=== PATIENT | female | born 1990 | race Caucasian/White ===

== ENCOUNTER 2017-05-04 23:00 | Emergency (ER) | payer BC, MEDICAID ==
[~2017-05-04] VITALS: Ht 170.2 cm; Wt 53.0 kg
[2017-05-04 23:02] VITALS: BP 119/80; PULSE 85; RESP 16; TEMP 97.6; O2SAT 100
[2017-05-04] MEDS ORDERED: PREN29TA PO (23:28)
[2017-05-04 23:59] VITALS: BP 118/73; PULSE 88; RESP 16; O2SAT 99
--- NOTE | 2017-05-05 01:13 | PD ---
HPI Chief Complaint: Related Problem Time Seen by Provider: 01:09 Travel History International Travel<30 days: No Contact w/Intl Traveler<30days: No Traveled to known affect area: No History of Present Illness HPI 26-year-old female Ab1 presents to the emergency department last muscle. January 2017 estimating herself to be approximately 13 weeks . Patient was seen by her PRESSURE DISPATCHER on Friday ultrasound was performed and reportedly she was almost 13 weeks at that time. Patient states that there were no other concerns or complaints at time of ultrasound. Patient reports that at 8 AM she started having cramping on Friday and 8 PM started having vaginal bleeding on and the evening. Patient states the vaginal bleeding has decreased. Patient denies passing any clots or tissue. Patient denies dysuria frequency urgency flank pain near-syncope or syncope. PFSH Past Medical History Narrative Medical Ab1; no tobacco use: Nursing notes reviewed Medical History: Denies Significant Hx Diminished Hearing: No Tetanus Vaccination: < 5 Years Influenza Vaccination: No ?: Past Surgical History Surgical History: No Previous Surgery Social History Alcohol Use: No Tobacco Use: No Substance Use: No Allergies-Medications (Allergen,Severity, Reaction): Coded Allergies: penicillin G (Verified Allergy, Intermediate, 05/04/17) HIVES Reported Meds & Prescriptions Reported Meds & Active Scripts Active Reported Plus Iron 29-1 mg ( Vit-Iron Carbonyl) 29 Mg Iron-1 Mg Tab 1 Tab PO DAILY Review of Systems Except as stated in HPI: all other systems reviewed are Neg Physical Exam Narrative Well-developed well-nourished female in no acute distress no respiratory distress GENERAL: SKIN: Warm and dry. HEAD: Normocephalic. EYES: No scleral icterus. No injection or drainage. NECK: Supple, trachea midline. No JVD or lymphadenopathy. CARDIOVASCULAR: Regular rate and rhythm without murmurs, gallops, or rubs. RESPIRATORY: Breath sounds equal bilaterally. No accessory muscle use. GASTROINTESTINAL: Abdomen soft, non-tender, nondistended. Pelvic exam: MUSCULOSKELETAL: No cyanosis, or edema. BACK: Nontender without obvious deformity. No CVA tenderness. Data Data Last Documented VS Vital Signs Date Time Temp Pulse Resp B/P (MAP) Pulse Ox O2 Delivery O2 Flow Rate FiO2 05/04/17 23:59 88 16 118/73 (88) 99 Room Air 05/04/17 23:02 97.6 Orders Orders Beta Hcg (Quant/Titer) (05/05/17 01:10) Complete Blood Count With Diff (05/05/17 01:10) Complete Rh (05/05/17 01:10) Urinalysis - C+S If Indicated (05/05/17 01:10) Labs Laboratory Tests Test 05/05/17 01:25 05/05/17 02:30 White Blood Count 10.1 TH/MM3 Red Blood Count 4.33 MIL/MM3 Hemoglobin 13.5 GM/DL Hematocrit 39.6 % Mean Corpuscular Volume 91.6 FL Mean Corpuscular Hemoglobin 31.2 PG Mean Corpuscular Hemoglobin Concent 34.1 % Red Cell Distribution Width 13.0 % Platelet Count 172 TH/MM3 Mean Platelet Volume 7.9 FL Neutrophils (%) (Auto) 66.6 % Lymphocytes (%) (Auto) 24.5 % Monocytes (%) (Auto) 6.4 % Eosinophils (%) (Auto) 1.9 % Basophils (%) (Auto) 0.6 % Neutrophils # (Auto) 6.7 TH/MM3 Lymphocytes # (Auto) 2.5 TH/MM3 Monocytes # (Auto) 0.7 TH/MM3 Eosinophils # (Auto) 0.2 TH/MM3 Basophils # (Auto) 0.1 TH/MM3 CBC Comment DIFF FINAL Differential Comment Human Chorionic Gonadotropin, Quant 70305 MIU/ML Urine Color YELLOW Urine Turbidity HAZY Urine pH 6.0 Urine Specific [place] 1.028 Urine Protein TRACE mg/dL Urine Glucose (UA) NEG mg/dL Urine Ketones 40 mg/dL Urine Occult Blood NEG Urine Nitrite NEG Urine Bilirubin NEG Urine Urobilinogen LESS THAN 2.0 MG/DL Urine Leukocyte Esterase NEG Urine RBC LESS THAN 1 /hpf Urine WBC 2 /hpf Urine Squamous Epithelial Cells 3 /hpf Urine Hyaline Casts 1 /lpf Urine Mucus MANY /lpf Microscopic Urinalysis Comment CULT NOT INDICATED MDM Medical Decision Making Medical Screen Exam Complete: Yes Emergency Medical Condition: Yes Medical Record Reviewed: Yes Interpretation(s) CBC & BMP Diagram 05/05/17 01:25 Vital Signs Date Time Temp Pulse Resp B/P (MAP) Pulse Ox O2 Delivery O2 Flow Rate FiO2 05/04/17 23:59 88 16 118/73 (88) 99 Room Air 05/04/17 23:56 90 14 05/04/17 23:02 97.6 85 16 119/80 (93) 100 Room Air Urinalysis: No bacteria no culture indicated HC,953 (O+) Differential Diagnosis , threatened spontaneous AB, UTI Narrative Course Well-developed well-nourished female in no acute distress no respiratory distress pelvic exam no blood in the vaginal vault no tissue no clots cervical os is closed no cervical motion tenderness; after informed verbal consent bedside ultrasound performed by me using curvilinear probe and longitudinal and transverse views reveals intrauterine with heart rate of 146. Lab values found to be in normal range Hemoglobin stable; oh positive blood type Diagnosis Primary Impression: Qualified Codes: Z3A.13 - 13 weeks gestation of Additional Impression: Threatened spontaneous Referrals: Occupational Safety Specialist 1 day Patient Instructions: General Instructions Departure Forms: Tests/Procedures, Work Release Special Instructions: no work x 2 days Additional Instructions: Increase fluid hydration No work 2 days Pelvic rest 2 days Increase fluid hydration Tylenol as needed for discomfort or pain or for fever 100.4F or greater Return immediately to the nurse emergency department for bleeding greater than 1 pad per hour increased pain or any concerns Follow-up with PRESSURE DISPATCHER call office in a.m. to schedule appointment Disposition: DISCHARGE HOME Condition: Stable Chantel Weller MD May 05, 2017 01:13
[2017-05-05 01:40] LABS: AUTOMATED NEUTROPHIL # 6.7 TH/MM3 (1.8-7.7); BASOPHIL # 0.1 TH/MM3 (0-0.2); BASOPHIL % 0.6 % (0.0-2.0); EOSINOPHIL # 0.2 TH/MM3 (0-0.4); EOSINOPHIL % 1.9 % (0.0-4.0); HEMATOCRIT 39.6 % (35.0-46.0); HEMO FLAGS DIFF FINAL; LYMPH % 24.5 % (9.0-44.0); LYMPHOCYTE # 2.5 TH/MM3 (1.0-4.8); MEAN CELL VOLUME 91.6 FL (80.0-100.0); MEAN CORPUSCULAR HEMOGLOBIN 31.2 PG (27.0-34.0); MEAN CORPUSCULAR HGB CONC 34.1 % (32.0-36.0); MONO % 6.4 % (0.0-8.0); NEUT % 66.6 % (16.0-70.0); PLATELET COUNT 172 TH/MM3 (150-450); RED BLOOD COUNT 4.33 MIL/MM3 (4.00-5.30); WHITE BLOOD COUNT 10.1 TH/MM3 (4.0-11.0)
[2017-05-05 02:30] LABS: BETA HCG QUANT 49953 MIU/ML (0-5)
[2017-05-05 02:44] LABS: BLOOD, URINE NEG (NEG); COMMENT (UR) CULT NOT INDICATED; CULTURE IF INDICATED CULT NOT INDICATED; GLUCOSE,URINE NEG (NEG); HYALINE CAST, URINE 1 /lpf (RARE); KETONE, URINE 40 mg/dL (NEG); MUCUS URINE MANY /lpf (OCC); NITRITE,URINE NEG (NEG); SQUAMOUS EPITHELIAL CELL URINE 3 /hpf (0-5); URINE COLOR YELLOW (YELLW/STRAW)
== END 2017-05-05 03:58 | disposition home or self-care (01) ==
LOC: NEPC 23:00
DX: O20.0 Threatened abortion (principal); Z3A.13 13 weeks gestation of pregnancy
CPT/HCPCS: 81001; 84702; 85025; 86901; 99284

== ENCOUNTER 2017-10-29 21:13 | Inpatient (IN) | payer MEDICAID ==
[~2017-10-29] VITALS: Ht 172.7 cm; Wt 63.5 kg
[2017-10-29] VITALS (11 sets, daily range): BP systolic 116–128; BP diastolic 68–88; PULSE 87–107; RESP 17; O2SAT 100
[~2017-10-29 21:13] MED LIST: PREN29TA PO; ePHEDrine/NS 25 MG/5 ML SYRINGE IV PUSH PRN
[2017-10-29] MEDS ORDERED: TUMS500C CHEW (22:29)
[2017-10-29] MEDS ORDERED: ONDANSETRON HCL 4 MG/2 ML VIAL ONE (22:39)
[2017-10-29] MEDS: LACTATED RINGER'S 1000 ML INJ 1,000 ML IV SCH ×2 (22:40→23:40)
[2017-10-29] MEDS ORDERED: LACTATED RINGER'S 1000 ML INJ 1,000 ML IV PRN (22:48)
[2017-10-29] MEDS ORDERED: LIDOCAINE HCL 1% 50 ML VIAL INFIL PRN (23:00)
[2017-10-29] MEDS ORDERED: SODIUM CHLORID 0.9% 500 ML INJ 500 ML IV PRN (23:00)
[2017-10-29] MEDS ORDERED: LIDOCAINE HCL 1% 50 ML VIAL I-DERMAL PRN (23:00)
[2017-10-29] MEDS ORDERED: OXYTOCIN 30 UNITS-500ML PREMIX 500 ML IV ONE (23:00)
[2017-10-29] MEDS ORDERED: MINERAL OIL 10 ML VIAL TOPICAL PRN (23:00)
[2017-10-29] MEDS ORDERED: CITRIC ACID-SODIUM CITRATE LIQ 30 ML UDC PO SCH (23:00)
--- NOTE | 2017-10-29 23:01 | PD ---
HPI Chief Complaint ? ROM, ctxs Date Seen: Oct 29, 2017 Time Seen: 22:53 Travel History International Travel<30 Days: No Contact w/Intl Traveler<30Days: No Known Affected Area: No History of Present Illness HPI pt. is a 27 y/o @384/7 weeks present w/ c/o ctxs and ? rom. pt. states over the last 2 days has noticed leak of fluid. pt. also w/ h/o ptl this preg. was seen at [place], and d/c to home as not ruptured or in labor. present to day and states more leakage and more frequent ctxs. pt. states that checked at [facility] today and found to be 4 cm dilated, but check ed here and forund to be 5-6cm and +amniosure. +FM, no vb, +LOF. Weeks Gestation: 38 Para: 1 : 3 History Past Medical History Medical History: Denies Significant Hx Obstetric History Obstetric History , s/p x 1 Past Surgical History Surgical History: No Previous Surgery Family History Family History: Negative Social History Alcohol Use: No Tobacco Use: No Substance Abuse: No Allergies-Medications (Allergen,Severity, Reaction): Coded Allergies: penicillin G (Verified Adverse Reaction, Mild, 10/29/17) HIVES, PT STATES SHE HASNT HAD REACTION SINCE AGE OF 4 AND HAS HAD PCN SINCE WITH NO PROBLEMS Home Meds Reported Medications Calcium Carbonate (Antacid) (Tums) 500 Mg Chew, 500 MG CHEW Y for HEARTBURN, TAB 0 Refills 10/29/17 Vit-Iron Carbonyl ( Plus Iron 29-1 mg) 29 Mg Iron-1 Mg Tab, 1 TAB PO DAILY for Nutritional Supplement, #30 TAB 0 Refills 05/04/17 Review of Systems Except as stated in HPI: all other systems reviewed are Neg Physical Exam Narrative GENERAL: Well-nourished, well-developed patient. SKIN: Warm and dry. HEAD: Normocephalic and atraumatic. EYES: No scleral icterus. No injection or drainage. ENT: No nasal drainage noted. Mucous membranes pink. Airway patent. NECK: Supple, trachea midline. No JVD. CARDIOVASCULAR: Regular rate and rhythm without murmurs, gallops, or rubs. RESPIRATORY: Breath sounds equal bilaterally. No accessory muscle use. ABDOMEN/GI: Abdomen soft, non-tender, bowel sounds present, no rebound, no guarding Gravid GENITOURINARY: External Genitalia: intact and normal in appearance Dilatation: 5-6 Effacement: 50 Station: high Presentation: cephalic Membranes: ruptured Uterine Contractions: 3-5 min FHT's: Category: 1 Reactive:+ Variability: mod EXTREMITIES: No cyanosis or edema. BACK: Nontender without obvious deformity. No CVA tenderness. NEUROLOGICAL: Awake and alert. Motor and sensory grossly within normal limits. Five out of 5 muscle strength in all muscle groups. Normal speech. Data Data Vital Signs Reviewed: Yes Orders Orders Ob (2e) Additional Admit Info (10/29/17 21:52) Ondansetron Inj (Zofran Inj) (10/29/17 22:39) Admit To Inpatient (10/29/17 ) Vital Signs (Adult) .Per protocol (10/29/17 22:48) Heart (10/29/17 22:48) Amnioinfusion (10/29/17 22:48) Urinary Catheter Management .ONCE (10/29/17 22:48) Diet Npo (10/30/17 Breakfast) Lactated Ringer's 1000 Ml Inj (Lr 1000 M (10/29/17 22:48) Lactated Ringer's 1000 Ml Inj (Lr 1000 M (10/29/17 22:48) Sodium Chlorid 0.9% 500 Ml Inj (Ns 500 M (10/29/17 23:00) Sodium Chlor 0.9% 1000 Ml Inj (Ns 1000 M (10/29/17 23:08) Lidocaine 1% Inj (50 Ml) (Xylocaine 1% I (10/29/17 23:00) Citric Acid-Sodium Citrate Liq (Bicitra (10/29/17 23:00) Fentanyl Inj (Fentanyl Inj) (10/29/17 23:00) Fentanyl Inj (Fentanyl Inj) (10/29/17 23:00) Complete Blood Count With Diff (10/29/17 22:48) Hold Clot (10/29/17 22:48) Abo/Rh Blood Type (10/29/17 22:48) Urinalysis - C+S If Indicated (10/29/17 22:48) Drug Screen, Random Urine (10/29/17 22:48) Ob/Psych Drug Screen, Urine (10/29/17 22:48) Resp Oxygen Non Rebreathe Mask (10/29/17 ) ^ Epidural / Intrathecal Infus (10/29/17 22:48) Oxytocin 30 Units-500ml Premix (Pitocin (10/29/17 23:00) Lidocaine 1% Inj (50 Ml) (Xylocaine 1% I (10/29/17 23:00) Light Mineral Oil (Muri-Lube Oil) (10/29/17 23:00) Inpatient Certification (10/29/17 ) [facility] Medical Record Reviewed: Yes Plan 27 y/o @ 38 4/7 weeks w/ srom and labor. pt. to be admitted to l&d. fht reassuring. will continue to monitor. Diagnosis Diagnosis: Primary Impression: Rupture of amniotic sac less than 24 hours prior to the onset of labor Additional Impression: 38 weeks gestation of Hayder Aj Jr., MD Oct 29, 2017 23:01
[2017-10-29] MEDS ORDERED: SODIUM CHLOR 0.9% 1000 ML INJ 1,000 ML IV PRN (23:08)
[2017-10-29] MEDS ORDERED: fentaNYL 2MCG-BUPIV 0.125% INJ 100 ML ONE (23:11)
[2017-10-29] MEDS ORDERED: ONDANSETRON HCL 4 MG/2 ML VIAL IV PUSH PRN (23:15)
[2017-10-29 23:21] LABS: AUTOMATED NEUTROPHIL # 11.4 TH/MM3 (1.8-7.7); BASOPHIL # 0.1 TH/MM3 (0-0.2); BASOPHIL % 0.5 % (0.0-2.0); EOSINOPHIL % 0.1 % (0.0-4.0); HEMATOCRIT 31.8 % (35.0-46.0); HEMOGLOBIN 10.4 GM/DL (11.6-15.3); LYMPH % 13.7 % (9.0-44.0); MEAN CELL VOLUME 81.6 FL (80.0-100.0); MEAN CORPUSCULAR HEMOGLOBIN 26.6 PG (27.0-34.0); MEAN CORPUSCULAR HGB CONC 32.7 % (32.0-36.0); MEAN PLATELET VOLUME 7.9 FL (7.0-11.0); MONO % 5.8 % (0.0-8.0); MONOCYTE # 0.8 TH/MM3 (0-0.9); NEUT % 79.9 % (16.0-70.0); PLATELET COUNT 188 TH/MM3 (150-450); RED CELL DISTRIBUTION WIDTH 15.1 % (11.6-17.2); WHITE BLOOD COUNT 14.3 TH/MM3 (4.0-11.0)
[2017-10-29 23:30] LABS: BACTERIA, URINE RARE /hpf; BILIRUBIN, URINE NEG (NEG); BLOOD, URINE SMALL (NEG); GLUCOSE,URINE TRACE mg/dL (NEG); KETONE, URINE NEG (NEG); MUCUS URINE FEW /lpf (OCC); NITRITE,URINE NEG (NEG); SQUAMOUS EPITHELIAL CELL URINE 5 /hpf (0-5); URINE COLOR YELLOW (YELLW/STRAW); URINE LEUKOCYTE ESTERASE LARGE (NEG)
[2017-10-29] MEDS ORDERED: NO SYSTEM NARCOTICS PRN (23:30)
[2017-10-29] MEDS ORDERED: DO NOT ADMINISTER ANTICOAGULANTS PRN (23:30)
[2017-10-29] MEDS ORDERED: fentaNYL 2MCG-BUPIV 0.125% 100 ML EPIDURAL SCH (23:30)
[2017-10-30] VITALS (56 sets, daily range): BP systolic 91–131; BP diastolic 61–91; PULSE 57–146; RESP 17–20; TEMP 97.8–98.8
--- NOTE | 2017-10-30 00:12 | HHI.HP ---
History & Physical H&P HPI Chief Complaint ? ROM, ctxs Date Seen: Oct 29, 2017 Time Seen: 22:53 Travel History International Travel<30 Days: No Contact w/Intl Traveler<30Days: No Known Affected Area: No History of Present Illness HPI pt. is a 27 y/o @384/7 weeks present w/ c/o ctxs and ? rom. pt. states over the last 2 days has noticed leak of fluid. pt. also w/ h/o ptl this preg. was seen at [facility] [place], and d/c to home as not ruptured or in labor. present to day and states more leakage and more frequent ctxs. pt. states that checked [facility] today and found to be 4 cm dilated, but check ed here and forund to be 5-6cm and +amniosure. +FM, no vb, +LOF. Weeks Gestation: 38 Para: 1 : 3 History Past Medical History Medical History: Denies Significant Hx Obstetric History Obstetric History , s/p x 1 Past Surgical History Surgical History: No Previous Surgery Family History Family History: Negative Social History Alcohol Use: No Tobacco Use: No Substance Abuse: No Allergies-Medications (Allergen,Severity, Reaction): Coded Allergies: penicillin G (Verified Adverse Reaction, Mild, 10/29/17) HIVES, PT STATES SHE HASNT HAD REACTION SINCE AGE OF 4 AND HAS HAD PCN SINCE WITH NO PROBLEMS Home Meds Reported Medications Calcium Carbonate (Antacid) (Tums) 500 Mg Chew, 500 MG CHEW Y for HEARTBURN, TAB 0 Refills 10/29/17 Vit-Iron Carbonyl ( Plus Iron 29-1 mg) 29 Mg Iron-1 Mg Tab, 1 TAB PO DAILY for Nutritional Supplement, #30 TAB 0 Refills 05/04/17 Review of Systems Except as stated in HPI: all other systems reviewed are Neg Physical Exam Narrative GENERAL: Well-nourished, well-developed patient. SKIN: Warm and dry. HEAD: Normocephalic and atraumatic. EYES: No scleral icterus. No injection or drainage. ENT: No nasal drainage noted. Mucous membranes pink. Airway patent. NECK: Supple, trachea midline. No JVD. CARDIOVASCULAR: Regular rate and rhythm without murmurs, gallops, or rubs. RESPIRATORY: Breath sounds equal bilaterally. No accessory muscle use. ABDOMEN/GI: Abdomen soft, non-tender, bowel sounds present, no rebound, no guarding Gravid GENITOURINARY: External Genitalia: intact and normal in appearance Dilatation: 5-6 Effacement: 50 Station: high Presentation: cephalic Membranes: ruptured Uterine Contractions: 3-5 min FHT's: Category: 1 Reactive:+ Variability: mod EXTREMITIES: No cyanosis or edema. BACK: Nontender without obvious deformity. No CVA tenderness. NEUROLOGICAL: Awake and alert. Motor and sensory grossly within normal limits. Five out of 5 muscle strength in all muscle groups. Normal speech. Data Data Vital Signs Reviewed: Yes Orders Orders Ob (2e) Additional Admit Info (10/29/17 21:52) Ondansetron Inj (Zofran Inj) (10/29/17 22:39) Admit To Inpatient (10/29/17 ) Vital Signs (Adult) .Per protocol (10/29/17 22:48) Heart (10/29/17 22:48) Amnioinfusion (10/29/17 22:48) Urinary Catheter Management .ONCE (10/29/17 22:48) Diet Npo (10/30/17 Breakfast) Lactated Ringer's 1000 Ml Inj (Lr 1000 M (10/29/17 22:48) Lactated Ringer's 1000 Ml Inj (Lr 1000 M (10/29/17 22:48) Sodium Chlorid 0.9% 500 Ml Inj (Ns 500 M (10/29/17 23:00) Sodium Chlor 0.9% 1000 Ml Inj (Ns 1000 M (10/29/17 23:08) Lidocaine 1% Inj (50 Ml) (Xylocaine 1% I (10/29/17 23:00) Citric Acid-Sodium Citrate Liq (Bicitra (10/29/17 23:00) Fentanyl Inj (Fentanyl Inj) (10/29/17 23:00) Fentanyl Inj (Fentanyl Inj) (10/29/17 23:00) Complete Blood Count With Diff (10/29/17 22:48) Hold Clot (10/29/17 22:48) Abo/Rh Blood Type (10/29/17 22:48) Urinalysis - C+S If Indicated (10/29/17 22:48) Drug Screen, Random Urine (10/29/17 22:48) Ob/Psych Drug Screen, Urine (10/29/17 22:48) Resp Oxygen Non Rebreathe Mask (10/29/17 ) ^ Epidural / Intrathecal Infus (10/29/17 22:48) Oxytocin 30 Units-500ml Premix (Pitocin (10/29/17 23:00) Lidocaine 1% Inj (50 Ml) (Xylocaine 1% I (10/29/17 23:00) Light Mineral Oil (Muri-Lube Oil) (10/29/17 23:00) Inpatient Certification (10/29/17 ) [facility] Medical Record Reviewed: Yes Plan 27 y/o @ 38 4/7 weeks w/ srom and labor. pt. to be admitted to l&d. fht reassuring. will continue to monitor. Diagnosis Diagnosis: Primary Impression: Rupture of amniotic sac less than 24 hours prior to the onset of labor Additional Impression: 38 weeks gestation of Hayder Aj Jr., MD Oct 30, 2017 00:12
[2017-10-30] MEDS ORDERED: OXYTOCIN 30 UNITS/NS 500ML PREMIX IV PRN (01:00)
[2017-10-30] MEDS ORDERED: LIDOCAINE HCL 1% 20 ML VIAL ONE (03:43)
--- NOTE | 2017-10-30 04:50 | PD.OB.DELI ---
Weeks gestation: 38 Gest age assessed date: Oct 30, 2017 Pt started active labor?: Yes Artificial rupture of membrane: No Anesthesia: Epidural Episiotomy: None Vaginal Delivery: Normal Presentation: Occiput anterior Nuchal Cord: None Delayed cord clamping (45 sec): Yes : Male Delivery date: Oct 30, 2017 Delivery time: 03:37 One Minute : 8 Five Minute : 9 Placenta: Spontaneous delivery Laceration: 1 deg Repair: Vicryl running Estimated blood loss: 400cc Hayder Aj Jr., MD Oct 30, 2017 04:50
[2017-10-30] MEDS ORDERED: ALUMINUM/MAGNESIUM/SIMETH 30 ML CUP PO PRN (05:00)
[2017-10-30] MEDS ORDERED: OXYTOCIN 30 UNITS-500ML PREMIX 500 ML IV SCH (05:00)
[2017-10-30] MEDS ORDERED: DOCUSATE SODIUM 50 MG/SENNA 8.6 MG TAB PO PRN (05:00)
[2017-10-30] MEDS ORDERED: ZOLPIDEM TARTRATE 5 MG TAB PO PRN (05:00)
[2017-10-30] MEDS ORDERED: SODIUM CHLORIDE 0.9% FLUSH 10 ML FLUSH IV FLUSH PRN (05:00)
[2017-10-30] MEDS ORDERED: ONDANSETRON ODT 4 MG TAB PO PRN (05:00)
[2017-10-30] MEDS: IBUPROFEN 800 MG TAB PO PRN ×2 (05:21→14:22)
[2017-10-30] MEDS: ACETAMINOPHEN 325 MG TAB PO PRN ×3 (05:21→18:46)
[2017-10-30] MEDS ORDERED: SODIUM CHLORIDE 0.9% FLUSH 10 ML FLUSH IV FLUSH SCH (09:00)
[2017-10-30] MEDS: BENZOCAINE 20% TOPICAL SPRAY 60 ML CAN TOPICAL PRN (11:12)
[2017-10-30] MEDS: WITCH HAZEL 50%/GLYCERIN 12.5% 40 PAD JAR TOPICAL PRN (11:12)
[2017-10-30] MEDS ORDERED: DIPHTH/TETANUS/ACEL PERTUSSIS (BOOSTER) 0.5 ML VIAL/PFS IM ONE (16:00)
[2017-10-30] MEDS ORDERED: MEASLES, MUMPS, RUBELLA VACCINE 0.5 ML VIAL SQ ONE (16:00)
[2017-10-30] MEDS ORDERED: KETOROLAC TROMETHAMINE 30 MG/ML (IVP) VIAL IV PUSH ONE (21:15)
[2017-10-30] MEDS: LACTATED RINGER'S 1000 ML INJ 1,000 ML IV SCH (22:01)
[2017-10-31] MEDS: IBUPROFEN 800 MG TAB PO PRN ×2 (05:18→12:20)
[2017-10-31] MEDS: BENZOCAINE 20% TOPICAL SPRAY 60 ML CAN TOPICAL PRN (05:18)
[2017-10-31] MEDS: WITCH HAZEL 50%/GLYCERIN 12.5% 40 PAD JAR TOPICAL PRN (05:18)
[2017-10-31 07:51] VITALS: BP 118/81; PULSE 88; RESP 18; RESP 9; TEMP 97.8
--- NOTE | 2017-10-31 08:43 | HHI.OB ---
Subjective Post Day: 1 Remarks day #1 AFVSS overnight. Decreased lochia. Denies dysuria. No breast tenderness. Appetite good. No nausea or vomiting. Positive flatus/bowel movement. Ambulating well. Denies calf pain or shortness of breath. Otherwise, she is doing well this morning and has no other complaints. Objective Vitals/I&O Vital Signs Date Time Temp Pulse Resp B/P (MAP) Pulse Ox O2 Delivery O2 Flow Rate FiO2 10/31/17 07:51 18 10/31/17 07:51 97.8 88 9 118/81 (93) 10/30/17 19:50 114/74 (87) 10/30/17 19:50 97.8 82 20 Objective Remarks GENERAL: Well-nourished, well-developed patient. CARDIOVASCULAR: Regular rate and rhythm without murmurs, gallops, or rubs. RESPIRATORY: Breath sounds equal bilaterally. No accessory muscle use. ABDOMEN/GI: Abdomen soft, non-tender. Fundus: Firm, non-tender at umbilicus. GENITOURINARY: Light to moderate bleeding. EXTREMITIES: No cyanosis or edema, non-tender, without signs of DVT. Medications and IVs Current Medications Medications (Trade) Dose Ordered Sig/Effie Route Start Time Stop Time Status Last Admin Lactated Ringer's 1,000 ml @ 125 mls/hr Q8H IV 10/29/17 22:48 10/29/17 23:40 Lactated Ringer's 1,000 ml @ 3,000 mls/hr Q20M PRN IV 10/29/17 22:48 Sodium Chloride 500 ml @ 1,000 mls/hr ONCE PRN IV 10/29/17 23:00 Sodium Chloride 1,000 ml @ 100 mls/hr Q10H PRN IV 10/29/17 23:08 (Xylocaine 1% Inj (50 ml)) 0.1 ml UNSCH X1 PRN I-DERMAL 10/29/17 23:00 11/01/17 22:59 (Bicitra Liq) 30 ml [employer] PO 10/29/17 23:00 11/02/17 22:59 (fentaNYL INJ) 50 mcg Q1H PRN IV PUSH 10/29/17 23:00 (fentaNYL INJ) 100 mcg Q1H PRN IV PUSH 10/29/17 23:00 (Xylocaine 1% Inj (50 ml)) 10 ml UNSCH X1 PRN INFIL 10/29/17 23:00 10/31/17 22:59 (Muri-Lube Oil) 10 ml UNSCH PRN TOPICAL 10/29/17 23:00 (Zofran Inj) 4 mg Q6H PRN IV PUSH 10/29/17 23:15 Fentanyl/ Bupivacaine HCl 100 ml @ 10 mls/hr TITRATE EPIDURAL 10/29/17 23:30 10/30/17 00:32 Oxytocin 500 ml @ 0 mls/hr TITRATE PRN IV 10/30/17 01:00 (NS Flush) 2 ml BID IV FLUSH 10/30/17 09:00 10/30/17 22:00 (NS Flush) 2 ml UNSCH PRN IV FLUSH 10/30/17 05:00 10/30/17 05:15 (Tylenol) 650 mg Q4H PRN PO 10/30/17 05:00 10/30/17 18:46 (Motrin) 800 mg Q8H PRN PO 10/30/17 05:00 10/31/17 05:18 (Americaine 20% Top Spr) 1 spray Q4H PRN TOPICAL 10/30/17 05:00 10/31/17 05:18 (Tucks Pads) 1 applic QID PRN TOPICAL 10/30/17 05:00 10/31/17 05:18 (Daniela-Colace) 2 tab Q12H PRN PO 10/30/17 05:00 10/30/17 11:12 (Ambien) 5 mg HS PRN PO 10/30/17 05:00 (Mag-Al Plus Susp Liq) 15 ml Q8H PRN PO 10/30/17 05:00 (Zofran Odt) 4 mg Q6H PRN PO 10/30/17 05:00 Assessment/Plan Assessment and Plan 27y/o female who is PPD#1 s/p . -Continue routine care. -Motrin PRN pain. -Encouraged OOB. Advised pelvic rest for 6 wks. -Re: ctrl, she would like to speak with her outpatient OB regarding control. -D/c likely today. EVANGELIST Lucas,Benigno Villarreal MD R1 Oct 31, 2017 08:43
[2017-10-31] MEDS ORDERED: IBUP1TAB7 PO (09:29)
[2017-10-31] MEDS ORDERED: PERI PO (09:29)
--- NOTE | 2017-10-31 09:29 | HHI.DCPOC ---
Discharge Care Plan Diagnosis: (1) Vaginal delivery Report Symptoms to Your Doctor -Temperature above 100.5 degrees -Redness, of incision or excessive or foul smelling drainage -Unusual pain or calf pain -Increased vaginal bleeding -Painful or difficulty urinating -Feelings of extreme sadness or anxiety after 2 weeks Goals to Promote Your Health * To prevent worsening of your condition and complications * To maintain your health at the optimal level Directions to Meet Your Goals Take your medications as prescribed Follow your dietary instruction Follow activity as directed Ensure plenty of rest for recovery Drink fluids for hydration Keep your appointments as scheduled Take your immunizations and boosters as scheduled If your symptoms worsen call your PCP, if no PCP go to Urgent Care Center or Emergency Room Smoking is Dangerous to Your Health. Avoid second hand smoke Call the 24-hour crisis hotline for domestic abuse at Benigno Lucas MD R1 Oct 31, 2017 09:29
[2017-10-31] MEDS: ACETAMINOPHEN 325 MG TAB PO PRN (12:19)
== END 2017-10-31 13:20 | disposition home or self-care (01) | DRG 775 ==
LOC: HOBED 21:13 → H2EB 21:53 → H1EA 10-30 06:08
PROVIDERS: ADMIT Obstetrics & Gynecology; ATTEND Obstetrics & Gynecology
PROC: 10E0XZZ Delivery of Products of Conception, External Approach (ICD-10-PCS; principal; 2017-10-30)
DX: O80 Encounter for full-term uncomplicated delivery (principal); Z88.0 Allergy status to penicillin; Z37.0 Single live birth; Z3A.38 38 weeks gestation of pregnancy
CPT/HCPCS: 59025; 80307; 81001; 84112; 85025; 86900; 86901; 87086; 96374; G0481; J1885; J2405; J2590; J7120

== ENCOUNTER 2017-11-08 13:35 | Emergency (ER) | payer MEDICAID ==
[~2017-11-08] VITALS: Ht 172.7 cm; Wt 56.0 kg
[~2017-11-08 13:35] MED LIST changes: +IBUP1TAB7 PO; +PERI PO; +TUMS500C CHEW; -ePHEDrine/NS 25 MG/5 ML SYRINGE IV PUSH PRN
[2017-11-08 13:51] VITALS: BP 115/75; PULSE 89; RESP 18; TEMP 97.9; O2SAT 100
--- NOTE | 2017-11-08 14:03 | PD ---
HPI Chief Complaint: Bleeding Time Seen by Provider: 13:52 Travel History International Travel<30 days: No Contact w/Intl Traveler<30days: No Traveled to known affect area: No History of Present Illness HPI Patient is a 27-year-old female presented to the emergency room for evaluation of vaginal bleeding. 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 She states that she stands up and she has blood running down her legs. She felt dizzy and lightheaded when this occurred and experienced some mild cramping. Patient states she continues to have occasional cramping but overall feels well. She is currently breast-feeding her . She denies any fevers, chest pain, shortness of breath. Symptom onset was sudden symptom severity is moderate, symptoms are not exacerbated or alleviated by anything. Patient's OB is Dr. Aj. [facility] Past Medical History Medical History: Denies Significant Hx Diminished Hearing: No ?: Not : 3 Para: 1 Past Surgical History Surgical History: No Previous Surgery Social History Alcohol Use: No Tobacco Use: No Substance Use: No Allergies-Medications (Allergen,Severity, Reaction): Coded Allergies: penicillin G (Verified Adverse Reaction, Mild, 11/08/17) HIVES, PT STATES SHE HASNT HAD REACTION SINCE AGE OF 4 AND HAS HAD PCN SINCE WITH NO PROBLEMS Reported Meds & Prescriptions Reported Meds & Active Scripts Active Gnp Senna Plus 8.6-50 mg (Sennosides-Docusate Sodium) 8.6 Mg-50 Mg Tab 2 Tab PO Q12H PRN Ibuprofen 800 Mg Tab 800 Mg PO Q8H PRN Reported Tums (Calcium Carbonate (Antacid)) 500 Mg Chew 500 Mg CHEW PRN Plus Iron 29-1 mg ( Vit-Iron Carbonyl) 29 Mg Iron-1 Mg Tab 1 Tab PO DAILY Review of Systems Except as stated in HPI: all other systems reviewed are Neg Gastrointestinal: Positive: Abdominal Pain (Abdominal cramping) Genitourinary: Positive: Vaginal Bleeding Physical Exam Narrative GENERAL: Well-developed, well-nourished, well-appearing female. Presenting in no acute distress. SKIN: Warm and dry. HEAD: Atraumatic. Normocephalic. EYES: Pupils equal and round. No scleral icterus. No injection or drainage. ENT: No nasal bleeding or discharge. Mucous membranes pink and moist. NECK: Trachea midline. No JVD. CARDIOVASCULAR: Regular rate and rhythm. RESPIRATORY: No accessory muscle use. Clear to auscultation. Breath sounds equal bilaterally. GASTROINTESTINAL: Abdomen soft, mildly tender in suprapubic region, no guarding , no rebound, nondistended. Hepatic and splenic margins not palpable. MUSCULOSKELETAL: Extremities without clubbing, cyanosis, or edema. No obvious deformities. NEUROLOGICAL: Awake and alert. No obvious cranial nerve deficits. Motor grossly within normal limits. Five out of 5 muscle strength in the arms and legs. Normal speech. PSYCHIATRIC: Appropriate mood and affect; insight and judgment normal. Data Data Last Documented VS Vital Signs Date Time Temp Pulse Resp B/P (MAP) Pulse Ox O2 Delivery O2 Flow Rate FiO2 11/08/17 17:58 76 15 124/84 (97) 99 Room Air 11/08/17 13:51 97.9 Orders Orders Complete Blood Count With Diff (11/08/17 13:53) Comprehensive Metabolic Panel (11/08/17 13:53) Iv Access Insert/Monitor (11/08/17 13:53) Us Pelvis Comp Checking Clerk/Non-Preg (11/08/17 ) Methylergonovine Inj (Methergine Inj) (11/08/17 17:30) Misoprostol (Cytotec) (11/08/17 17:30) Acetaminophen (Tylenol) (11/08/17 18:30) Labs Laboratory Tests Test 11/08/17 14:10 White Blood Count 13.7 TH/MM3 Red Blood Count 3.63 MIL/MM3 Hemoglobin 9.5 GM/DL Hematocrit 29.8 % Mean Corpuscular Volume 82.2 FL Mean Corpuscular Hemoglobin 26.2 PG Mean Corpuscular Hemoglobin Concent 31.9 % Red Cell Distribution Width 16.0 % Platelet Count 190 TH/MM3 Mean Platelet Volume 7.6 FL Neutrophils (%) (Auto) 86.1 % Lymphocytes (%) (Auto) 8.6 % Monocytes (%) (Auto) 4.6 % Eosinophils (%) (Auto) 0.1 % Basophils (%) (Auto) 0.6 % Neutrophils # (Auto) 11.8 TH/MM3 Lymphocytes # (Auto) 1.2 TH/MM3 Monocytes # (Auto) 0.6 TH/MM3 Eosinophils # (Auto) 0.0 TH/MM3 Basophils # (Auto) 0.1 TH/MM3 CBC Comment DIFF FINAL Differential Comment Blood Urea Nitrogen 12 MG/DL Creatinine 0.80 MG/DL Random Glucose 78 MG/DL Total Protein 6.3 GM/DL Albumin 2.5 GM/DL Calcium Level 7.7 MG/DL Alkaline Phosphatase 121 U/L Aspartate Amino Transf (AST/SGOT) 11 U/L Alanine Aminotransferase (ALT/SGPT) 13 U/L Total Bilirubin 0.3 MG/DL Sodium Level 140 MEQ/L Potassium Level 4.0 MEQ/L Chloride Level 109 MEQ/L Carbon Dioxide Level 24.6 MEQ/L Anion Gap 6 MEQ/L Estimat Glomerular Filtration Rate 87 ML/MIN MDM Medical Decision Making Medical Screen Exam Complete: Yes Emergency Medical Condition: Yes Medical Record Reviewed: Yes Interpretation(s) Vital Signs Date Time Temp Pulse Resp B/P (MAP) Pulse Ox O2 Delivery O2 Flow Rate FiO2 11/08/17 13:51 97.9 89 18 115/75 (88) 100 Differential Diagnosis hemorrhage versus anemia versus metabolic abnormality versus retained placenta. Narrative Course Patient is well-appearing 27-year-old female presenting for evaluation of an abrupt onset of vaginal bleeding in the period. Patient's vital signs are stable, labs ordered and pending. CBC with a hemoglobin of 9.5, there was a slight downward trend from prior. Chemistry is unremarkable. Ultrasound shows no retained contents. Discussed with Dr. Aj who presented to the emergency department and evaluated patient himself. He stated that he believes it may be an atonic uterus, he ordered medications and advised to monitor patient for at least 2 hours to see if bleeding stops. Reassessed patient at 1930-she reports that the bleeding has slowed down, she had passed one large clot around 1730 and the bleeding has not soaked through a single pad since that time. She states she feels well and is ready to be discharged. Called Dr. Aj to discuss follow-up plans. He states she needs to follow-up with her circuit court clerk this week. She is to return immediately to the emergency department for any new or worsening symptoms. Patient verbalized understanding of these instructions. Patient stable for discharge. Diagnosis Primary Impression: Atonic hemorrhage Referrals: Chart Clerk 2 days Patient Instructions: General Instructions, Bleeding (ED) Additional Instructions: Follow-up with your circuit court clerk in 2-3 days Return to the emergency department immediately for any new or worsening symptoms Do not lift any objects heavier than your infant Med/Other Pt SpecificInfo: No Change to Meds Disposition: 01 DISCHARGE HOME Condition: Stable Adriana Obregon Nov 08, 2017 14:03
[2017-11-08 14:30] LABS: AUTOMATED NEUTROPHIL # 11.8 TH/MM3 (1.8-7.7); BASOPHIL # 0.1 TH/MM3 (0-0.2); BASOPHIL % 0.6 % (0.0-2.0); EOSINOPHIL % 0.1 % (0.0-4.0); HEMATOCRIT 29.8 % (35.0-46.0); HEMOGLOBIN 9.5 GM/DL (11.6-15.3); LYMPH % 8.6 % (9.0-44.0); LYMPHOCYTE # 1.2 TH/MM3 (1.0-4.8); MEAN CELL VOLUME 82.2 FL (80.0-100.0); MEAN CORPUSCULAR HEMOGLOBIN 26.2 PG (27.0-34.0); MEAN CORPUSCULAR HGB CONC 31.9 % (32.0-36.0); MEAN PLATELET VOLUME 7.6 FL (7.0-11.0); MONO % 4.6 % (0.0-8.0); MONOCYTE # 0.6 TH/MM3 (0-0.9); NEUT % 86.1 % (16.0-70.0); PLATELET COUNT 190 TH/MM3 (150-450); RED BLOOD COUNT 3.63 MIL/MM3 (4.00-5.30); WHITE BLOOD COUNT 13.7 TH/MM3 (4.0-11.0)
[2017-11-08 14:53] LABS: ALBUMIN 2.5 GM/DL (3.4-5.0); AST (GOT) 11 U/L (15-37); BICARBONATE 24.6 MEQ/L (21.0-32.0); BLOOD UREA NITROGEN 12 MG/DL (7-18); CALCIUM 7.7 MG/DL (8.5-10.1); CHLORIDE 109 MEQ/L (98-107); GLOMERULAR FILTRATION RATE 87 ML/MIN (>89); GLUCOSE,RANDOM 78 MG/DL (74-106); SODIUM (NA) 140 MEQ/L (136-145)
[2017-11-08 14:57] LABS: ALKALINE PHOSPHATASE 121 U/L (45-117); ALT (GPT) 13 U/L (10-53); TOTAL BILIRUBIN ADULT 0.3 MG/DL (0.2-1.0); TOTAL PROTEIN 6.3 GM/DL (6.4-8.2)
--- NOTE | 2017-11-08 15:24 | RADRPT ---
EXAM DATE/TIME: 11/08/2017 14:47 [facility] COMPARISON: No previous studies available for comparison. INDICATIONS : Bleeding 9 days . MEDICAL HISTORY : 9 days . SURGICAL HISTORY : None. ENCOUNTER: Initial ACUITY: 1 day PAIN SCORE: 0/10 LOCATION: Bilateral pelvis MEASUREMENTS: UTERUS: 14.0 x 6.6 x 10.9 cm ENDOMETRIAL STRIPE: 20 mm RIGHT OVARY: 4.5 x 2.0 x 2.1 cm LEFT OVARY: 4.6 x 2.4 x 2.7 cm FINDINGS: UTERUS: Enlarged uterus consistent with state. Heterogeneous fluid within the endometrial stripe. No increased color Doppler flow in the endometrial stripe. Rounded area of hyperechogenicity displaci ng the endometrial stripe in the fundus anteriorly measuring 2.8 x 1.9 x 1.9 cm, likely representing a fibroid. RIGHT OVARY: Ovary contains no mass or significant cystic lesion. LEFT OVARY: Ovary contains no mass or significant cystic lesion. MISCELLANEOUS: Trace free fluid in the cul-de-sac. CONCLUSION: Enlarged uterus with heterogeneous fluid and endometrial stripe. No training intern al color Doppler flow of the endometrial stripe. Rounded submucosal mass in the fundus likely represe nts fibroid. John Greenfield MD on November 08, 2017 at 15:18 Board Certified Radiologist. This report was verified electronically.
[2017-11-08 16:00] VITALS: BP 117/79; PULSE 87; RESP 16; O2SAT 99
[2017-11-08] MEDS ORDERED: MISOPROSTOL 200 MCG TAB PO ONE (17:30)
[2017-11-08] MEDS ORDERED: METHYLERGONOVINE MALEATE 0.2 MG/ML VIAL IM ONE (17:30)
[2017-11-08 17:58] VITALS: BP 124/84; PULSE 76; RESP 15; O2SAT 99
[2017-11-08] MEDS ORDERED: ACETAMINOPHEN 325 MG TAB PO ONE (18:30)
== END 2017-11-08 20:34 | disposition home or self-care (01) ==
LOC: NEPE 13:35
DX: O72.1 Other immediate postpartum hemorrhage (principal)
CPT/HCPCS: 76856; 80053; 85025; 96372; 99284; J2210